=== PATIENT | female | born 1945 | race Caucasian/White ===

== ENCOUNTER 2023-05-22 11:45 | Emergency (ER) | payer MEDICARE, MEDICAID, SELFPAY ==
[2023-05-22] VITALS (17 sets, daily range): BP systolic 108–122; BP diastolic 48–106; PULSE 44–55; RESP 12–21; O2SAT 91–97
--- NOTE | 2023-05-22 12:00 | RT.EKG_ITS ---
APPROVED REPORT Exam: Resting ECG Reason for Exam: malaise Patient Location: E HR:47 bpm ECG Measurements Heart Rate 47 AXIS AL 191 P 38 QRSd 105 QRS 16 QT [id number] T 195 QTc 0 Conclusion Sinus bradycardia...rate< 60
[2023-05-22 12:29] LABS: Lactate 1.4 mmol/L (0.6-1.4)
[2023-05-22 12:31] LABS: Abs Immature Grans 0.02 10^3/uL (0.0-0.06); Absolute Basophil Count 0.03 10^3/uL (0.0-0.2); Absolute Eosinophil Count 0.07 10^3/uL (0.0-0.7); Absolute Lymphocyte Count 1.04 10^3/uL (1.2-3.4); Absolute Monocyte Count 0.31 10^3/uL (0.1-0.8); Absolute Neutrophil Count 3.37 10^3/uL (1.2-6.7); Basophils % 0.6; Eosinophils % 1.4; HCT 33.3 % (36.0-46.0); HGB 10.9 g/dL (11.2-15.7); Immature Grans % 0.4; Lymphocytes % 21.5; MCH 30.4 pg (27.0-33.0); MCHC 32.7 % (32.0-36.0); MCV 93 fL (80-95); MPV 9.9 fL (8.0-11.0); Monocytes % 6.4; Neutrophils % 69.7; Platelet Count 229 10^3/uL (130-400); RBC 3.58 10^6/uL (3.93-5.22); RDW-SD 51.7 fL; WBC 4.84 10^3/uL (4.4-10.8)
[2023-05-22 12:55] LABS: ALT 36 U/L (14-59); AST 55 U/L (15-37); Alkaline Phosphatase 39 U/L (46-116); Anion Gap 8.6 mmol/L (3-11); BUN 20 mg/dL (7-18); Bilirubin, Total 0.6 mg/dL (0.2-1.0); CO2 27.4 mmol/L (21.0-32.0); CREATININE 1.8 mg/dL (0.55-1.02); Calcium 8.7 mg/dL (8.5-10.1); Chloride 101 mmol/L (98-107); Estimated GFR 29.02 (mL/min/1.73m2); Glucose 169 mg/dL (74-106); Magnesium 1.9 mg/dL (1.8-2.4); NT-proBNP 135 pg/mL (<300); Potassium 3.4 mmol/L (3.5-5.1); Sodium 137 mmol/L (136-145); Total Protein 7.6 g/dL (6.4-8.2); Troponin I < 50 ng/L (<or=60)
--- NOTE | 2023-05-22 12:59 | DI.RAD_ITS ---
Exam(s) XR CHEST 2V PA LATERAL EXAM: XR CHEST 2V PA LATERAL CLINICAL HISTORY: malaise TECHNIQUE: 2D digital imaging was performed of the chest. Two images were obtained. PA and lateral views were obtained. COMPARISON: No exams were available for comparison FINDINGS: MEDIASTINUM: Normal. HEART: Normal. PULMONARY VASCULATURE: Normal. LUNGS: Clear. PLEURAL SPACE: No pleural effusion or pneumothorax. BONE:Within normal limits for the patient's age. OTHER FINDINGS:Normal. IMPRESSION: No acute pulmonary findings. DATA REPOSITORY: RADIATION DOSE DELIVERED:
[2023-05-22 13:27] LABS: TSH (W/Ref FT4) 228.68 uIU/mL (0.36-3.74)
[2023-05-22 13:44] LABS: FREE T4 0.12 ng/dL (0.76-1.46)
--- NOTE | 2023-05-22 14:05 | W.ED.GENAD ---
Discharge Plan Disposition Patient Disposition: Home Condition: Good Discharge Details Clinical Impression: Hypothyroid Primary Care Provider: Yanci Frederick ED Provider: Zoya Dhillon Home Meds and New Rx's Prescriptions: New levothyroxine 125 mcg tablet 125 mcg PO DAILY Qty: 30 0RF Discharge Instructions Instructions: Hypothyroidism (ED) Additional Instructions: Call your primary care doctor today to schedule an appointment to follow up on your visit here. Take your medications as prescribed. A refill on your thyroid medication was sent to your pharmacy. Please make sure you have all your other medications. Return to the emergency department for new or worsening symptoms. Referrals: Yanci Frederick [Primary Care Provider] - Discharge Data Discharge Date/Time-TO BE ENTERED AT DEPARTURE: 05/22/23 18:20 Medical Decision Making 77yo F presenting with 4-5 days of generalized weakness and generalized malaise. 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 Slightly bradycardiac, vital signs and physical exam otherwise reassuring. Not mxydema coma. Not septic. Suspect symptoms likely related to untreated hypothyroidism; will evaluate broadly with labs and screen for infection. CXR with no pneumonia. EKG sinus bradycardia. Labs as below, CBC & CMP reassuring. No significant electrolyte abnormalities, no leuckytosis. Mildly elevated Cr at 1.8 (unknown baseline, reports voiding as usual, no new edema) as well as anemia to 10.9 (patient states this is known; denies recent bleeding including dark or bloody stool). TSH and T4 consistent with untreated hypothyroidism. Daughter subsequently to bedside at states patient's home dose of levothyroxine is 125mcg; this was ordered in the ED a one month supply sent to her pharmacy. Patient declined to provided urine sample which is reasonable. Advised to followup with PCP regarding kidney function. Discharged home; discharge instructions and return precautions were reviewed with patient who verbalized understanding. All questions were answered and she is in full agreement with the plan. Imaging Data Radiologic Study: Attestation: I personally reviewed and interpreted this imaging study as follows: Imaging: X-Ray Radiologist's impression: IMPRESSION: No acute pulmonary findings. Lab Data Lab results reviewed: Yes I reviewed the patient's lab results. Labs: Laboratory Tests Range/Units 05/22/23 05/22/23 05/22/23 12:00 12:00 12:27 WBC (4.4-10.8) 10^3/uL 4.84 RBC (3.93-5.22) 10^6/uL 3.58 L Hgb (11.2-15.7) g/dL 10.9 L Hct (36.0-46.0) % 33.3 L MCV (80-95) fL 93 MCH (27.0-33.0) pg 30.4 MCHC (32.0-36.0) % 32.7 RDW (11.7-14.6) % 15.0 H Plt Count (130-400) 10^3/uL 229 MPV (8.0-11.0) fL 9.9 Immature Gran % 0.4 Neutrophils % 69.7 Lymphocytes % 21.5 Monocytes % 6.4 Eosinophils % 1.4 Basophils % 0.6 Nucleated RBC % (0.0-0.3) % 0.0 Absolute Neutrophils (1.2-6.7) 10^3/uL 3.37 Absolute Lymphocytes (1.2-3.4) 10^3/uL 1.04 L Absolute Monocytes (0.1-0.8) 10^3/uL 0.31 Absolute Eosinophils (0.0-0.7) 10^3/uL 0.07 Absolute Basophils (0.0-0.2) 10^3/uL 0.03 VBG Lactate (0.6-1.4) mmol/L 1.4 Sodium (136-145) mmol/L 137 Potassium (3.5-5.1) mmol/L 3.4 L Chloride (98-107) mmol/L 101 Carbon Dioxide (21.0-32.0) mmol/L 27.4 Anion Gap (3-11) mmol/L 8.6 BUN (7-18) mg/dL 20 H Creatinine (0.55-1.02) mg/dL 1.8 H Est GFR (CKD-EPI 2020) (mL/min/1.73m2) 29.02 Glucose (74-106) mg/dL 169 H Calcium (8.5-10.1) mg/dL 8.7 Magnesium (1.8-2.4) mg/dL 1.9 Total Bilirubin (0.2-1.0) mg/dL 0.6 AST (15-37) U/L 55 H ALT (14-59) U/L 36 Alkaline Phosphatase (46-116) U/L 39 L Troponin I (<or=60) ng/L < 50 NT-Pro-B Natriuret Pep (<300) pg/mL 135 Total Protein (6.4-8.2) g/dL 7.6 Albumin (3.4-5.0) g/dL 4.0 TSH (0.36-3.74) uIU/mL 228.68 H Free T4 (0.76-1.46) ng/dL 0.12 L HPI General Mode of arrival: ambulatory. Date/Time Provider Initiated Documentation: 05/22/23 11:49. Limitations to Documentation: no limitations. Information obtained by: patient and family. HPI Narrative: 77yo F with HTN, HLD, hypothyroid, presenting with 4-5 days of generalized weakness and generalized malaise. 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 She has no focal weakness, numbness, tingling, or headache. No infectious symptoms including no fever, chills, rash, nausea, vomiting, abdominal pain, shortness of breath, cough, rhinorhea, dysuria, or hematuria. No chest pain. She is otherwise in her usual state of health. Unknown her home medications or her dose of her thyroid medication. Related Data Home Medications Medication Instructions Recorded Confirmed levothyroxine 125 mcg tablet 125 mcg PO DAILY #30 tabs 05/22/23 Previous Rx's Medication Instructions Recorded levothyroxine 125 mcg tablet 125 mcg PO DAILY #30 tabs 05/22/23 General Stated Complaint: GenMedical CLARENCE: 3 Review of Systems Narrative: see HPI PFSH All Active Problems (Updated 05/22/23 @ 14:10 by Zoya Dhillon MD) Hypothyroid (Chronic) Social History Smoking/Tobacco Use Status: Current every day Smoking risk assessment performed?: Yes Alcohol Intake: former Substance use type: does not use Housing: house Do you feel safe at home: Yes Do you feel safe in your relationship?: Yes Exam Narrative Exam Narrative: General: Alert, well appearing, well nourished, in no acute distress. Head: Normocephalic, atraumatic Neck: Trachea midline, Neck supple. ENT: MMM. No oropharygeal lesions or exudate. Cardiac: Regular, rate in 50's, no murmurs appreciated Resp: No respiratory distress. CTAB. Abd: Soft, non-distended, nontender : No suprapubic tenderness. No CVA tenderness. Extremities: No deformities. No peripheral edema. Neurologic: GCS 15. Moves all extremities freely against gravity Course Vital Signs Vital signs: Vital Signs Pulse Oximetry 97 05/22/23 11:52 Pulse 47 L 05/22/23 12:16 Pulse 55 L 05/22/23 13:50 Respiratory Rate 21 05/22/23 13:50 Respiratory Effort Normal 05/22/23 12:02 Respiratory Depth Normal 05/22/23 12:02 Respiratory Pattern Normal 05/22/23 12:02 Blood Pressure 108/48 L 05/22/23 12:16 Blood Pressure Mean 64 05/22/23 12:16 Blood Pressure Position Sitting 05/22/23 11:53 Pulse Oximetry 91 L 05/22/23 13:50 Oxygen Delivery Method Room Air 05/22/23 11:53 Oxygen Flow Rate 0 05/22/23 11:53 Lab/Test Results Lab/Test Results: Laboratory Tests Range/Units 05/22/23 05/22/23 05/22/23 12:00 12:00 12:27 WBC (4.4-10.8) 10^3/uL 4.84 RBC (3.93-5.22) 10^6/uL 3.58 L Hgb (11.2-15.7) g/dL 10.9 L Hct (36.0-46.0) % 33.3 L MCV (80-95) fL 93 MCH (27.0-33.0) pg 30.4 MCHC (32.0-36.0) % 32.7 RDW (11.7-14.6) % 15.0 H Plt Count (130-400) 10^3/uL 229 MPV (8.0-11.0) fL 9.9 Immature Gran % 0.4 Neutrophils % 69.7 Lymphocytes % 21.5 Monocytes % 6.4 Eosinophils % 1.4 Basophils % 0.6 Nucleated RBC % (0.0-0.3) % 0.0 Absolute Neutrophils (1.2-6.7) 10^3/uL 3.37 Absolute Lymphocytes (1.2-3.4) 10^3/uL 1.04 L Absolute Monocytes (0.1-0.8) 10^3/uL 0.31 Absolute Eosinophils (0.0-0.7) 10^3/uL 0.07 Absolute Basophils (0.0-0.2) 10^3/uL 0.03 VBG Lactate (0.6-1.4) mmol/L 1.4 Sodium (136-145) mmol/L 137 Potassium (3.5-5.1) mmol/L 3.4 L Chloride (98-107) mmol/L 101 Carbon Dioxide (21.0-32.0) mmol/L 27.4 Anion Gap (3-11) mmol/L 8.6 BUN (7-18) mg/dL 20 H Creatinine (0.55-1.02) mg/dL 1.8 H Est GFR (CKD-EPI 2020) (mL/min/1.73m2) 29.02 Glucose (74-106) mg/dL 169 H Calcium (8.5-10.1) mg/dL 8.7 Magnesium (1.8-2.4) mg/dL 1.9 Total Bilirubin (0.2-1.0) mg/dL 0.6 AST (15-37) U/L 55 H ALT (14-59) U/L 36 Alkaline Phosphatase (46-116) U/L 39 L Troponin I (<or=60) ng/L < 50 NT-Pro-B Natriuret Pep (<300) pg/mL 135 Total Protein (6.4-8.2) g/dL 7.6 Albumin (3.4-5.0) g/dL 4.0 TSH (0.36-3.74) uIU/mL 228.68 H Free T4 (0.76-1.46) ng/dL 0.12 L
[2023-05-22] MEDS: Levothyroxine 125 MCG TAB PO (14:17)
== END 2023-05-22 18:20 | disposition home or self-care (01) ==
PROVIDERS: Emergency Provider Student in an Organized Health Care Education/Training Program; PCP Nurse Practitioner Family
DX: E03.9 Hypothyroidism, unspecified (principal); R53.81 Other malaise
CPT/HCPCS: 36415; 80053; 93005; 99284; 71046; 81003; 83605; 83735; 83880; 84439; 84443; 84484; 85025; 93010